=== PATIENT | female | born 1945 | race Caucasian/White ===

== ENCOUNTER 2024-04-24 14:16 | Outpatient (CLI) | payer MEDICARE | END 2024-04-24 14:17 | disposition home or self-care (01) | LOC: BICULT 14:16 | PROVIDERS: ATTEND Family Medicine | DX: I77.9 Disorder of arteries and arterioles, unspecified (principal) | CPT/HCPCS: 93880 ==

== ENCOUNTER 2025-03-04 13:35 | Outpatient (CLI) | payer MEDICARE | END 2025-03-04 13:36 | disposition home or self-care (01) | LOC: BICMAMMO 13:35 | PROVIDERS: ATTEND Family Medicine | DX: Z12.31 Encounter for screening mammogram for malignant neoplasm of breast (principal); N95.9 Unspecified menopausal and perimenopausal disorder; M85.851 Other specified disorders of bone density and structure, right thigh; M85.852 Other specified disorders of bone density and structure, left thigh; Z80.3 Family history of malignant neoplasm of breast | CPT/HCPCS: 77063; 77067; 77080 ==